=== PATIENT | male | born 1960 | race Caucasian/White ===

== ENCOUNTER 2017-04-23 00:18 | Emergency (ER) | payer OTHER ==
[~2017-04-23] VITALS: Ht 180.3 cm; Wt 129.6 kg
[~2017-04-23 00:18] MED LIST: APIX5TAB PO; ATOR20TA38 PO; BACTDS PO; CALC500T12 PO; CIPR500T4 PO; DOCU-159 PO; FURO80TA3 PO; HYDR-3498 PO; MAGN400O4 PO; MECL-77 PO; MULTI PO; OMEG-135 PO; PENT400T2 PO; SPIR50TA31 PO; TRAM50TA2 PO
[2017-04-23 00:25] VITALS: Ht 180.3 cm; Wt 129.6 kg
--- NOTE | 2017-04-23 02:47 | ERD ---
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 He had a suture in his right neck. This morning he states that he had significant bleeding from area of the wound. It has now stopped. The patient is on Lovenox. He has stopped Coumadin and Eliquis, which she was on previously. ROS All systems reviewed and are negative except as per history of present illness. Medications Home Meds Active Scripts Sulfamethoxazole-Trimethoprim* (Bactrim* DS) 800-160 Mg Tab, 1 TAB PO BID for 7 Days, #20 TAB Prov:ABRAM GROVE 04/13/16 Ciprofloxacin Hcl* (Ciprofloxacin Hcl*) 500 Mg Tablet, 500 MG PO BID for 7 Days , #14 TAB Prov:ABRAM GROVE 04/13/16 Apixaban* (Eliquis*) 5 Mg Tablet, 5 MG PO BID, #44 TAB 2 Refills Prov:ABRAM GROVE 01/16/16 Reported Medications Magnesium Hydroxide* (Milk Of Magnesia*) 400 Mg/5 Ml Oral.susp, 30 ML PO DAILY Y for CONSTIPATION, ML 01/11/16 Calcium Carbonate* ([place]co-500*) 1 Tab Tablet, 1 TAB PO DAILY, TAB 01/11/16 Fish Oil* (Fish Oil*) 1,000 Mg Cap, 1000 MG PO DAILY, CAP 01/11/16 Multivitamins* (Theragran*) 1 Tab Tab, 1 TAB PO DAILY, TAB 01/11/16 Spironolactone* (Aldactone*) 50 Mg Tablet, 50 MG PO DAILY 12/12/15 Meclizine Hcl* (Meclizine Hcl*) 25 Mg Tablet, 25 MG PO TID Y for VERTIGO 12/12/15 Docusate Sodium* (Docusate Sodium*) 100 Mg Capsule, 100 MG PO BID 12/12/15 Tramadol HCl (Tramadol HCl) 50 Mg Tablet, 50-100 MG PO TID Y for PAIN 12/12/15 Hydrocodone Bit/Acetaminophen (Anexsia 5-325 Mg Tablet) 1 Tab Tablet, 1-2 TAB PO QHS Y for INSOMNIA 12/12/15 Pentoxifylline* (Pentoxifylline*) 400 Mg Tablet.sa, 400 MG PO TID 12/12/15 Furosemide* (Furosemide*) 80 Mg Tablet, 120 MG PO QHS, TAB 10/11/14 Atorvastatin Calcium* (Atorvastatin Calcium*) 20 Mg Tablet, 20 MG PO HS, TAB 10/11/14 Allergies Allergies: Coded Allergies: No Known Allergies (Verified Allergy, Unknown, 02/04/16) PMhx/Soc Past medical history: DVTs Past surgical history: IVC filter, gastric bypass Social history: Denies tobacco, alcohol or illicit drugs Anesthesia Reaction: No Hx Neurological Disorder: Yes (vertigo) Hx Respiratory Disorders: Yes ( PE) Hx Cardiac Disorders: Yes ( DVT) Hx Psychiatric Problems: No Hx Miscellaneous Medical Probl: No Hx Alcohol Use: Yes (occasionally, once a month ) Hx Substance Use: No Hx Tobacco Use: No Smoking Status: Never smoker FmHx Family History: No coronary disease, No diabetes Physical Exam Vitals Vital Signs Date Time Temp Pulse Resp B/P Pulse Ox O2 Delivery O2 Flow Rate FiO2 04/23/17 03:59 54 21 103/54 97 Room Air 04/23/17 00:25 98.3 62 20 100/60 97 Physical Exam Const: Alert, no acute distress Head: Atraumatic Eyes: Normal Conjunctiva, no pallor, no icterus ENT: Normal External Ears, Nose and Mouth. Mucous membranes moist Neck: Full range of motion. No meningismus. Right lower neck bulge with questionable thrill and small clot on tip. No active bleeding. Resp: Clear to auscultation bilaterally, no wheezes, no rales Cardio: Regular rate and rhythm, no murmurs Abd: Soft, non tender, non distended. Normal bowel sounds Skin: No petechiae or rashes Back: No midline or flank tenderness Ext: No cyanosis, 2+ edema bilateral shins Neur: Awake and alert, cranial nerves II through XII intact bilaterally, strength and sensation full in 4 extremities. Psych: Normal Mood and Affect Procedures/MDM MDM: Patient is a 56-year-old male who had retrieval of the IVC filter through his right IJ 1 week ago. He had a suture in his neck from the retrieval site. Today he had bleeding from that site. On arrival in the ED, there is no evidence of ongoing bleeding. There is a small clot at the site. On my exam, there is concern for possible aneurysm versus fistula, so an ultrasound was performed and shows no such abnormality. There is a nonspecific soft tissue density at that location. I suspect this this may be subcutaneous hematoma. I suspect that my impression of a thrill was related to transmitted pulse through the hematoma. The patient is otherwise well-appearing and has no signs of significant blood loss. I advised him on applying pressure continuously for 15 minutes if bleeding recurs, and on return precautions. Advised him to call his surgeon to arrange for further follow-up. Departure Diagnosis: Primary Impression: Postoperative hemorrhage Surgical complication system/body Area: circulatory system Procedure type: circulatory, unspecified Qualified Code: I97.618 - Postoperative hemorrhage involving circulatory system following circulatory system procedure Condition: Stable CASSY SOSA MD Apr 23, 2017 02:47
[2017-04-23 03:59] VITALS: BP 103/54; PULSE 54; RESP 21
--- NOTE | 2017-04-23 04:11 | RADRPT ---
PROCEDURE: Ultrasound examination of the right neck. CLINICAL INDICATION: Pain and swelling. TECHNIQUE: Multiple sonographic images of the right neck were obtained. COMPARISON: None. FINDINGS: There is a heterogeneous solid and cystic area within the right neck measuring 2.9 x 2.1 x 3.2 cm co ntaining a small cystic area measuring 1.2 x 0.6 x 0.9 cm. The right common carotid artery and inte rnal jugular vein are visualized with normal flow. No aneurysm is identified. IMPRESSION: Heterogeneous structure within the right neck measuring 2.9 x 2.1 x 3.2 cm. Further evaluation can be made by CT neck with contrast. No evidence of aneurysm. .Shen Torres MD, Date Time Electronically viewed and signed by .Shen Torres MD, MD on 04/23/2017 04:10 .T/
== END 2017-04-23 04:24 | disposition home or self-care (01) ==
LOC: E/R 00:18
DX: I97.618 Postprocedural hemorrhage of a circulatory system organ or structure following other circulatory system procedure (principal)
CPT/HCPCS: 76536; Z7502

== ENCOUNTER 2017-11-01 19:39 | Observation (INO) | END 2017-11-02 19:54 | disposition home or self-care (01) ==